=== PATIENT | male | born 1965 | race Caucasian/White ===

== ENCOUNTER 2019-09-07 09:37 | Emergency (ER) | payer SELFPAY ==
[2019-09-07] MEDS: Sodium Chloride 0.9% 10 ML Syringe FLUSH PRN ×4 (09:45→11:16)
[2019-09-07] MEDS ORDERED: Pantoprazole 40 MG Vial IVPUSH ONE (09:53)
[2019-09-07] MEDS ORDERED: Ondansetron 4 MG/2 ML SDV IVPUSH ONE ×2 (09:53→11:00)
[2019-09-07] MEDS ORDERED: Pantoprazole 40 MG Vial ONE (09:55)
[2019-09-07] MEDS ORDERED: Sodium Chloride 0.9% 1,000 ML IV SCH ×2 (10:00)
[2019-09-07] MEDS ORDERED: Vasopressin 20 Units/1 ML MDV IVPUSH ONE (10:09)
[2019-09-07] MEDS ORDERED: DOPamine/Dextrose 5%-Water 400 MG/250 ML BAG IV SCH (10:30)
--- NOTE | 2019-09-07 10:37 | EDM.PDOC ---
ED HPI GENERAL MEDICAL PROBLEM - General Stated Complaint: VOMITING of blood Time Seen by Provider: 09/07/19 10:25 Source of Information: Reports: Patient History Limitations: Reports: No Limitations - History of Present Illness INITIAL COMMENTS - FREE TEXT/NARRATIVE: Patient presented to the ED because of hematemesis. He vomited coffee ground emesis several times today. He also c/o diffuse abdominal pain,,8/10. The pain is sharp, worse on the epigastric area. There is no associate fever,chills or any usrinary symptoms. Past Medical History Gastrointestinal History: Reports: PUD Social & Family History - Tobacco Use Smoking Status *Q: Heavy Tobacco Smoker ED ROS GENERAL - Review of Systems Review Of Systems: See Below Constitutional: Reports: No Symptoms HEENT: Reports: No Symptoms Respiratory: Reports: No Symptoms Cardiovascular: Reports: No Symptoms Endocrine: Reports: No Symptoms GI/Abdominal: Reports: Abdominal Pain : Reports: No Symptoms Musculoskeletal: Reports: No Symptoms Skin: Reports: No Symptoms Neurological: Reports: No Symptoms Psychiatric: Reports: No Symptoms ED EXAM, GI/ABD - Physical Exam Exam: See Below Exam Limited By: No Limitations General Appearance: Alert, No Apparent Distress Ears: Normal External Exam, Normal Canal, Hearing Grossly Normal Throat/Mouth: Normal Inspection, Normal Lips, Normal Teeth Head: Atraumatic, Normocephalic Neck: Normal Inspection, Supple Respiratory/Chest: No Respiratory Distress, Lungs Clear, Normal Breath Sounds, No Accessory Muscle Use Cardiovascular: Normal Peripheral Pulses, Regular Rate, Rhythm, No Edema, No Gallop, No JVD, No Murmur GI/Abdominal Exam: Normal Bowel Sounds, Soft, Non-Tender, No Organomegaly, No Distention, No Abnormal Bruit (Male) Exam: No Hernia Back Exam: Normal Inspection Extremities: Normal Inspection Course - Vital Signs Text/Narrative:: labs/ct abd pelvis was discussed with patient and verbalized full understanding consult with Alexis who agreed with the above blood ns 2 liters bolus dopamine drip @ 10 microgram/min protonix 80 mg iv x1 protonix drip at 8 mg /hr zofran 4 mg ivx1 - Orders/Labs/Meds Orders: Active Orders 24 hr Category Date Time Status EKG Documentation Completion [RC] ASDIRECTED Care 09/07/19 09:52 Active Abdomen Pelvis w Cont [CT] Stat Exams 09/07/19 09:54 Ordered Chest 1V Frontal [CR] Stat Exams 09/07/19 09:50 Ordered AMYLASE [CHEM] Stat Lab 09/07/19 10:00 Received COMPREHENSIVE METABOLIC PN,CMP [CHEM] Stat Lab 09/07/19 10:00 Received INR,PT,PROTHROMBIN TIME [COAG] Stat Lab 09/07/19 09:50 Ordered LIPASE [CHEM] Stat Lab 09/07/19 10:00 Received PTT,PARTIAL THROMBOPLSTIN TIME [COAG] Stat Lab 09/07/19 09:50 Ordered TYPE AND SCREEN [BBK] Stat Lab 09/07/19 10:00 Received DOPamine/Dextrose 5%-Water [DOPamine in D5W 400 MG/250 Med 09/07/19 10:30 Active ML] 400 mg in 250 ml IV TITRATE Sodium Chloride 0.9% [Normal Saline] 1,000 ml Med 09/07/19 10:00 Active IV ASDIRECTED Sodium Chloride 0.9% [Normal Saline] 1,000 ml Med 09/07/19 10:00 Active IV ASDIRECTED Sodium Chloride 0.9% [Saline Flush] Med 09/07/19 09:50 Active 10 ml FLUSH ASDIRECTED PRN Saline Lock Insert [OM.PC] Routine Oth 09/07/19 09:50 Ordered EKG 12 Lead [EK] Routine Ther 09/07/19 09:52 Ordered Medication Orders Sodium Chloride (Normal Saline) 1,000 mls @ 999 mls/hr IV ASDIRECTED TOREY Sodium Chloride (Normal Saline) 1,000 mls @ 999 mls/hr IV ASDIRECTED TOREY Dopamine HCl/Dextrose (Dopamine In D5w 400 Mg/250 Ml) 400 mg in 250 mls @ 11.141 mls/hr IV TITRATE TOREY; Protocol Sodium Chloride (Saline Flush) 10 ml FLUSH ASDIRECTED PRN PRN Reason: Keep Vein Open Labs: Laboratory Tests 09/07/19 Range/Units 10:00 WBC 18.3 H (4.5-12.0) X10-3/uL RBC 3.01 L (4.30-5.75) x10(6)uL Hgb 7.6 L (13.5-17.8) g/dL Hct 23.9 L (30.0-51.3) % MCV 79.2 L (80-96) fL MCH 25.1 L (27.7-33.6) pg MCHC 31.7 L (32.2-35.4) g/dL RDW 23.3 H (11.5-15.5) % Plt Count 643 H (125-369) X10(3)uL MPV 7.9 (7.4-10.4) fL Add Manual Diff Yes Neutrophils % (Manual) 80 (46-82) % Band Neutrophils % 14 H (0-6) % Lymphocytes % (Manual) 2 L (13-37) % Monocytes % (Manual) 4 (4-12) % Anisocytosis Moderate H Meds: Medications Generic Name Dose Route Start Last Admin Trade Name Freq PRN Reason Stop Dose Admin Sodium Chloride 1,000 mls @ 999 mls/hr 09/07/19 10:00 Normal Saline IV ASDIRECTED TOREY Sodium Chloride 1,000 mls @ 999 mls/hr 09/07/19 10:00 Normal Saline IV ASDIRECTED TOREY Dopamine HCl/Dextrose 400 mg in 250 mls @ 11.141 mls/hr 09/07/19 10:30 Dopamine In D5w 400 Mg/250 Ml IV TITRATE TOREY Protocol 5 MCG/KG/MIN Sodium Chloride 10 ml 09/07/19 09:50 Saline Flush FLUSH ASDIRECTED PRN Keep Vein Open Discontinued Medications Generic Name Dose Route Start Last Admin Trade Name Freq PRN Reason Stop Dose Admin Ondansetron HCl 4 mg 09/07/19 09:53 Zofran IVPUSH 09/07/19 09:54 ONETIME ONE Pantoprazole Sodium 80 mg 09/07/19 09:53 Protonix Iv IVPUSH 09/07/19 09:54 .BOLUS ONE Pantoprazole Sodium Confirm 09/07/19 09:55 Protonix Iv Administered 09/07/19 09:56 Dose 80 mg .ROUTE .STK-MED ONE Vasopressin 0.1 units 09/07/19 10:09 Vasopressin IVPUSH 09/07/19 10:10 ONETIME ONE Departure - Departure Time of Disposition: 10:00 Disposition: DC/Tfer to Acute Hospital 02 Condition: Critical Clinical Impression: Upper GI bleed - Discharge Information Referrals: PCP,Not In Area [Primary Care Provider] - - My Orders Last 24 Hours: My Active Orders 09/07/19 09:50 Chest 1V Frontal [CR] Stat INR,PT,PROTHROMBIN TIME [COAG] Stat PTT,PARTIAL THROMBOPLSTIN TIME [COAG] Stat Sodium Chloride 0.9% [Saline Flush] 10 ml FLUSH ASDIRECTED PRN Saline Lock Insert [OM.PC] Routine 09/07/19 09:52 EKG Documentation Completion [RC] ASDIRECTED EKG 12 Lead [EK] Routine 09/07/19 09:54 Abdomen Pelvis w Cont [CT] Stat 09/07/19 10:00 AMYLASE [CHEM] Stat COMPREHENSIVE METABOLIC PN,CMP [CHEM] Stat LIPASE [CHEM] Stat TYPE AND SCREEN [BBK] Stat Sodium Chloride 0.9% [Normal Saline] 1,000 ml IV ASDIRECTED Sodium Chloride 0.9% [Normal Saline] 1,000 ml IV ASDIRECTED 09/07/19 10:30 DOPamine/Dextrose 5%-Water [DOPamine in D5W 400 MG/250 ML] 400 mg in 250 ml IV TITRATE - Assessment/Plan Last 24 Hours: My Active Orders 09/07/19 09:50 Chest 1V Frontal [CR] Stat INR,PT,PROTHROMBIN TIME [COAG] Stat PTT,PARTIAL THROMBOPLSTIN TIME [COAG] Stat Sodium Chloride 0.9% [Saline Flush] 10 ml FLUSH ASDIRECTED PRN Saline Lock Insert [OM.PC] Routine 09/07/19 09:52 EKG Documentation Completion [RC] ASDIRECTED EKG 12 Lead [EK] Routine 09/07/19 09:54 Abdomen Pelvis w Cont [CT] Stat 09/07/19 10:00 AMYLASE [CHEM] Stat COMPREHENSIVE METABOLIC PN,CMP [CHEM] Stat LIPASE [CHEM] Stat TYPE AND SCREEN [BBK] Stat Sodium Chloride 0.9% [Normal Saline] 1,000 ml IV ASDIRECTED Sodium Chloride 0.9% [Normal Saline] 1,000 ml IV ASDIRECTED 09/07/19 10:30 DOPamine/Dextrose 5%-Water [DOPamine in D5W 400 MG/250 ML] 400 mg in 250 ml IV TITRATE
[2019-09-07] MEDS ORDERED: Pantoprazole 80 MG in Sodium Chloride 0.9% 100 ML IV SCH (10:45)
[2019-09-07] MEDS ORDERED: Ondansetron 4 MG/2 ML SDV ONE (10:59)
[2019-09-07] MEDS ORDERED: Metoclopramide 10 MG/2 ML SDV ONE (11:04)
[2019-09-07] MEDS ORDERED: Metoclopramide 10 MG/2 ML SDV IVPUSH ONE (11:05)
--- NOTE | 2019-09-07 11:19 | CT ---
INDICATION: Hemoptysis. CT ABDOMEN AND PELVIS WITHOUT CONTRAST: Spiral 2.5 mm axial sections were obtained through the abdomen and pelvis without contrast 09/07/2019 - no comparisons. Total exam DLP was 401.51 mGy/cm. Lower lung baptiste and pleural spaces visualized revealed no definite active infiltrate or effusion. The heart did not appear enlarged. No pericardial effusion was seen. A moderate large fixed hiatal hernia is noted surrounded by air. A massively dilated stomach is noted with some irregularity at the posterior fundal area raising question of a discontinuous wall, raising question of a perforation. There is massive free air in the abdomen. There is massive distension of the colon in the area of the cecum with filling of the colon with what appears to be soft stool and air down to the level of the distal descending colon, where an area of increased density raises question of a neoplastic process or focal contraction seen on coronal image 74. The transition is noted on axial images 113 through 130 and is also well seen on coronal images 67 through 76. There is some gas and stool in the more distal colon which is not dilated. No specific retroperitoneal mass was identified. The gallbladder is somewhat enlarged but this could be on the basis of NPO status. It measured 95 mm. Adrenal glands and kidneys appear grossly normal. There is some mild renal calcinosis noted with tiny calculi times two in the lower pole of the left kidney. No gross abnormality of the pancreas was identified. The spleen and liver were fairly unremarkable. There is some limitation with visualization due to lack of IV contrast, however. There is suggestion of some fluid in the right pericolic gutter inferior to the liver edge. There is also ascites in the pelvis to a moderate degree. No significant appearing hernia was identified. IMPRESSION: 1. A massive amount of free air in the abdomen intraperitoneally, as well as extending around a moderately large fixed hiatal hernia. This is associated with massive distension of the stomach and proximal colon down to the level of the distal transverse colon, where an area of transition raises question of a neoplastic process. 2. Somewhat distended gallbladder most likely due to NPO status. 3. Minimal renal calcinosis lower pole left kidney. Report was called to Dr. Quispe at approximately 1045 hours. [facility]
--- NOTE | 2019-09-07 11:22 | CR ---
INDICATION: Hemoptysis. CHEST: An AP 30 degree Trendelenburg positioned 40-inch image was obtained portable and revealed no definite active infiltrate or effusion. The heart did not appear enlarged. There is some calcification in the arch of the aorta. Overlying EKG leads are noted. IMPRESSION: No acute process. MTDD
[2019-09-07] MEDS ORDERED: Sodium Chloride 0.9% 1,000 ML IV ONE (11:25)
== END 2019-09-07 11:34 ==
LOC: FB.ED 09:37
DX: K92.2 Gastrointestinal hemorrhage, unspecified (principal); F17.200 Nicotine dependence, unspecified, uncomplicated
CPT/HCPCS: 36415; 36430; 71045; 74176; 80053; 82150; 83690; 85025; 86850; 86900; 86901; 86920; 86922; 96361; 96365; 96375; 96376; 99285; C9113; J1265; J2405; J2765; J7030; J7050; P9016

== ENCOUNTER 2022-12-08 15:33 | Inpatient (IN) | payer OTHER ==
[2022-12-08] MEDS ORDERED: Sodium Chloride 0.9% 10 ML Syringe FLUSH PRN (15:39)
[2022-12-08] MEDS ORDERED: Sodium Chloride 0.9% 1,000 ML IV SCH (15:45)
[2022-12-08 16:00] LABS: BASOPHILS PERCENT AUTO 0.3 % (0.3-3.8); EOSINOPHILS ABSOLUTE AUTO 0.2 x10-3/uL (0.0-0.6); EOSINOPHILS PERCENT AUTO 1.8 % (0.1-6.8); HEMATOCRIT 35.1 % (38.3-50.1); HEMOGLOBIN 11.1 g/dL (12.9-17.7); LYMPHOCYTES ABSOLUTE AUTO 1.4 x10-3/uL (0.5-4.5); LYMPHOCYTES PERCENT AUTO 12.5 % (15.8-45.3); MEAN CORPUSCULAR HEMOGLOBIN 27.6 pg (27.0-33.3); MEAN CORPUSCULAR HGB CONC 31.7 g/dL (28.7-35.3); MEAN CORPUSCULAR VOLUME 86.8 fL (80.8-98.7); MEAN PLATELET VOLUME 7.2 fL (6.7-11.0); MONOCYTES PERCENT AUTO 9.3 % (5.5-15.2); NEUTROPHILS ABSOLUTE AUTO 8.6 x10-3/uL (1.7-6.9); NEUTROPHILS PERCENT AUTO 76.1 % (40.3-71.8); PLATELET COUNT,PLT 538 x10(3)uL (117-477); RED BLOOD CELL COUNT 4.04 x10(6)uL (3.90-5.90); RED CELL DISTRIBUTION WIDTH 18.9 % (12.4-15.0); WHITE BLOOD CELL COUNT,WBC 11.2 x10-3/uL (3.2-10.1)
[2022-12-08 16:12] LABS: A/G RATIO 0.7; ALANINE AMINOTRANSFERASE,ALT 29 U/L (12-36); ALBUMIN 3.3 g/dL (3.5-5.2); ALKALINE PHOSPHATASE 85 IU/L (56-112); ASPARTATE AMNIOTRANSFERASE,AST 19 IU/L (5-25); BLOOD UREA NITROGEN,BUN 97 mg/dL (7-18); CALCIUM 9.3 mg/dL (8.6-10.2); CHLORIDE,CL 104 mmol/L (100-110); ESTIMATED GFR 34 mL/min (>60); GLUCOSE RANDOM 134 mg/dL (80-116); PROTEIN TOTAL,TP 8.3 g/dL (6.0-8.0); SODIUM,NA 131 mmol/L (135-145)
[2022-12-08 16:14] LABS: BILIRUBIN TOTAL < 0.1 mg/dL (0.1-1.3); BUN/CREATININE RATIO 44.1 (9-20); CARBON DIOXIDE,CO2 10 mmol/L (21-32); CREATININE 2.2 mg/dL (0.70-1.30); POTASSIUM,K 6.4 mmol/L (3.5-5.3)
[2022-12-08 16:18] LABS: TROPONIN I 4.6 pg/mL (4.0-60.3)
[2022-12-08] MEDS ORDERED: Insulin Regular, Human 100 Units/ML 3 ML Vial IV ONE (16:19)
[2022-12-08] MEDS ORDERED: 50% Dextrose in Water 50 ML Syringe IVPUSH PRN (16:19)
[2022-12-08] MEDS ORDERED: Glucagon,Human Recombinant 1 MG Vial IM PRN (16:19)
[2022-12-08] MEDS ORDERED: Calcium Gluconate 10% 1 GM/10 ML SDV IVPUSH ONE (16:19)
[2022-12-08] MEDS ORDERED: Sodium Bicarbonate 8.4% 50 MEQ/50 ML Syringe IVPUSH ONE (16:20)
[2022-12-08] MEDS ORDERED: Albuterol 0.083% 2.5 MG/3 ML Neb Soln NEB ONE (16:21)
[2022-12-08] MEDS ORDERED: fentaNYL 100 MCG/2 ML SDV IVPUSH ONE (16:52)
[2022-12-08] MEDS: Sodium Chloride 0.9% 1,000 ML IV SCH (18:00)
[2022-12-08 18:29] LABS: BLOOD UREA NITROGEN,BUN 96 mg/dL (7-18); CALCIUM 9.3 mg/dL (8.6-10.2); CARBON DIOXIDE,CO2 13 mmol/L (21-32); CHLORIDE,CL 108 mmol/L (100-110); CREATININE 1.8 mg/dL (0.70-1.30); EST CRCL DRUG DOSING (CG) 40.86 mL/min; ESTIMATED GFR 43 mL/min (>60); GLUCOSE RANDOM 113 mg/dL (80-116); POTASSIUM,K 4.8 mmol/L (3.5-5.3); SODIUM,NA 135 mmol/L (135-145)
[2022-12-08 18:29] LABS: BILIRUBIN,URINE NEGATIVE (NEGATIVE); GLUCOSE,URINE NORMAL (NORMAL); KETONES,URINE NEGATIVE (NEGATIVE); LEUKOCYTE ESTERASE,URINE NEGATIVE (NEGATIVE); NITRITE,URINE NEGATIVE (NEGATIVE); OCCULT BLOOD,URINE NEGATIVE (NEGATIVE); PROTEIN,URINE NEGATIVE (NEGATIVE); UROBILINOGEN,URINE NORMAL (NEGATIVE)
[2022-12-08 18:32] LABS: APPEARANCE,URINE CLEAR (CLEAR); BACTERIA,URINE OCCASIONAL (NS); COLOR,URINE YELLOW (YELLOW); RBC,URINE NOT SEEN (0-5); SQUAMOUS EPITHELIAL CELLS,UR OCCASIONAL (NS,R,O); WBC,URINE 0-5 (0-5)
[2022-12-08 18:32] LABS: BUN/CREATININE RATIO 53.3 (9-20)
[2022-12-08 18:35] LABS: LACTIC ACID 0.8 mmol/L (0.4-2.0)
[2022-12-08] MEDS ORDERED: Morphine 2 MG/ML SYRINGE IVPUSH PRN (18:41)
[2022-12-08] MEDS ORDERED: Acetaminophen 500 MG Tab PO PRN (19:22)
[2022-12-08] MEDS ORDERED: Albuterol 8 GM Inhaler INH PRN (19:22)
[2022-12-08] MEDS: HYDROmorphone 2 MG/ML SDV IVPUSH PRN ×2 (20:20→23:28)
[2022-12-08] MEDS ORDERED: Formoterol/Mometasone 200-5 MCG 8.8 GM Inhaler IH SCH (21:00)
[2022-12-08] MEDS ORDERED: Non-Formulary Medication 1 Each (Omeprazole [Omeprazole] 20 MG Capsule.Dr) PO SCH (21:00)
[2022-12-08] MEDS: Apixaban 5 MG Tab PO SCH (21:17)
[2022-12-08] MEDS: Pantoprazole 40 MG Tab.CR PO SCH (21:17)
[2022-12-09] MEDS: Sodium Chloride 0.9% 1,000 ML IV SCH ×4 (00:17→19:43)
[2022-12-09] MEDS: HYDROmorphone 2 MG/ML SDV IVPUSH PRN ×6 (01:59→14:26)
[2022-12-09 06:43] LABS: BASOPHILS PERCENT AUTO 0.4 % (0.3-3.8); EOSINOPHILS ABSOLUTE AUTO 0.2 x10-3/uL (0.0-0.6); EOSINOPHILS PERCENT AUTO 1.7 % (0.1-6.8); HEMATOCRIT 30.8 % (38.3-50.1); HEMOGLOBIN 9.8 g/dL (12.9-17.7); LYMPHOCYTES ABSOLUTE AUTO 1.1 x10-3/uL (0.5-4.5); LYMPHOCYTES PERCENT AUTO 9.6 % (15.8-45.3); MEAN CORPUSCULAR HEMOGLOBIN 27.7 pg (27.0-33.3); MEAN CORPUSCULAR HGB CONC 31.9 g/dL (28.7-35.3); MEAN CORPUSCULAR VOLUME 86.6 fL (80.8-98.7); MEAN PLATELET VOLUME 7.1 fL (6.7-11.0); MONOCYTES ABSOLUTE AUTO 1.3 x10-3/uL (0.0-1.2); MONOCYTES PERCENT AUTO 12.2 % (5.5-15.2); NEUTROPHILS ABSOLUTE AUTO 8.4 x10-3/uL (1.7-6.9); NEUTROPHILS PERCENT AUTO 76.1 % (40.3-71.8); PLATELET COUNT,PLT 475 x10(3)uL (117-477); RED BLOOD CELL COUNT 3.56 x10(6)uL (3.90-5.90); RED CELL DISTRIBUTION WIDTH 18.8 % (12.4-15.0); WHITE BLOOD CELL COUNT,WBC 11.1 x10-3/uL (3.2-10.1)
[2022-12-09 06:56] LABS: ALANINE AMINOTRANSFERASE,ALT 23 U/L (12-36); ALBUMIN 2.7 g/dL (3.5-5.2); ALKALINE PHOSPHATASE 70 IU/L (56-112); ASPARTATE AMNIOTRANSFERASE,AST 17 IU/L (5-25); BILIRUBIN TOTAL 0.2 mg/dL (0.1-1.3); BLOOD UREA NITROGEN,BUN 68 mg/dL (7-18); CALCIUM 8.9 mg/dL (8.6-10.2); CARBON DIOXIDE,CO2 15 mmol/L (21-32); CHLORIDE,CL 110 mmol/L (100-110); CREATININE 1.2 mg/dL (0.70-1.30); EST CRCL DRUG DOSING (CG) 61.29 mL/min; ESTIMATED GFR 71 mL/min (>60); GLUCOSE RANDOM 84 mg/dL (80-116); POTASSIUM,K 5.4 mmol/L (3.5-5.3); SODIUM,NA 136 mmol/L (135-145)
[2022-12-09 06:58] LABS: BUN/CREATININE RATIO 56.7 (9-20)
[2022-12-09] MEDS: Rosuvastatin 20 MG Tab PO SCH (08:16)
[2022-12-09] MEDS: Apixaban 5 MG Tab PO SCH ×2 (08:17→20:30)
[2022-12-09] MEDS: Ferrous Sulfate 325 MG Tab PO SCH (08:17)
[2022-12-09] MEDS: Pantoprazole 40 MG Tab.CR PO SCH ×2 (08:17→20:30)
[2022-12-09 08:18] LABS: A/G RATIO 0.6; PROTEIN TOTAL,TP 7.1 g/dL (6.0-8.0)
[2022-12-09] MEDS: Formoterol/Mometasone 200-5 MCG 8.8 GM Inhaler IH SCH ×2 (09:08→20:29)
[2022-12-09] MEDS ORDERED: Furosemide 20 MG/2 ML VIAL IVPUSH ONE (10:00)
[2022-12-09] MEDS ORDERED: Ketorolac 15 MG/ML SDV IVPUSH ONE (12:00)
[2022-12-09] MEDS ORDERED: Iopamidol 755 Mg/ML 100 ML Bottle IV ONE (12:32)
[2022-12-09] MEDS: Magnesium Oxide 400 MG Tab PO SCH (15:04)
[2022-12-09] MEDS: Ketorolac 15 MG/ML SDV IVPUSH PRN (17:59)
[2022-12-09] MEDS: Acetaminophen/oxyCODONE 325-5 MG Tab PO PRN (21:16)
[2022-12-10] MEDS: Ketorolac 15 MG/ML SDV IVPUSH PRN ×2 (00:05→14:03)
[2022-12-10] MEDS: Sodium Chloride 0.9% 1,000 ML IV SCH ×3 (02:28→15:56)
[2022-12-10] MEDS: Acetaminophen/oxyCODONE 325-5 MG Tab PO PRN (02:29)
[2022-12-10] MEDS ORDERED: HYDROmorphone 2 MG/ML SDV IVPUSH STA ×2 (05:56→19:52)
[2022-12-10 06:41] LABS: BASOPHILS PERCENT AUTO 0.2 % (0.3-3.8); EOSINOPHILS ABSOLUTE AUTO 0.2 x10-3/uL (0.0-0.6); EOSINOPHILS PERCENT AUTO 1.8 % (0.1-6.8); HEMATOCRIT 30.2 % (38.3-50.1); HEMOGLOBIN 9.7 g/dL (12.9-17.7); LYMPHOCYTES PERCENT AUTO 10.2 % (15.8-45.3); MEAN CORPUSCULAR HEMOGLOBIN 27.8 pg (27.0-33.3); MEAN CORPUSCULAR HGB CONC 32.2 g/dL (28.7-35.3); MEAN CORPUSCULAR VOLUME 86.1 fL (80.8-98.7); MONOCYTES ABSOLUTE AUTO 1.1 x10-3/uL (0.0-1.2); MONOCYTES PERCENT AUTO 11.6 % (5.5-15.2); NEUTROPHILS ABSOLUTE AUTO 7.4 x10-3/uL (1.7-6.9); NEUTROPHILS PERCENT AUTO 76.2 % (40.3-71.8); PLATELET COUNT,PLT 494 x10(3)uL (117-477); RED BLOOD CELL COUNT 3.51 x10(6)uL (3.90-5.90); RED CELL DISTRIBUTION WIDTH 18.9 % (12.4-15.0); WHITE BLOOD CELL COUNT,WBC 9.7 x10-3/uL (3.2-10.1)
[2022-12-10 06:55] LABS: A/G RATIO 0.6; ALANINE AMINOTRANSFERASE,ALT 19 U/L (12-36); ALBUMIN 2.6 g/dL (3.5-5.2); ALKALINE PHOSPHATASE 70 IU/L (56-112); ASPARTATE AMNIOTRANSFERASE,AST 19 IU/L (5-25); BILIRUBIN TOTAL 0.2 mg/dL (0.1-1.3); BLOOD UREA NITROGEN,BUN 36 mg/dL (7-18); BUN/CREATININE RATIO 32.7 (9-20); CALCIUM 8.4 mg/dL (8.6-10.2); CARBON DIOXIDE,CO2 17 mmol/L (21-32); CHLORIDE,CL 109 mmol/L (100-110); CREATININE 1.1 mg/dL (0.70-1.30); EST CRCL DRUG DOSING (CG) 66.86 mL/min; ESTIMATED GFR 78 mL/min (>60); GLUCOSE RANDOM 92 mg/dL (80-116); LACTATE DEHYDROGENASE,LDH 140 U/L (85-227); POTASSIUM,K 4.4 mmol/L (3.5-5.3); PROTEIN TOTAL,TP 6.8 g/dL (6.0-8.0); SODIUM,NA 136 mmol/L (135-145)
[2022-12-10] MEDS ORDERED: HYDROmorphone 2 MG/ML SDV IVPUSH ONE ×2 (09:10→11:33)
[2022-12-10] MEDS: Apixaban 5 MG Tab PO SCH (11:19)
[2022-12-10] MEDS: Ferrous Sulfate 325 MG Tab PO SCH (11:19)
[2022-12-10] MEDS: Pantoprazole 40 MG Tab.CR PO SCH (11:19)
[2022-12-10] MEDS: Rosuvastatin 20 MG Tab PO SCH (11:19)
[2022-12-10] MEDS: Magnesium Oxide 400 MG Tab PO SCH (11:20)
[2022-12-10] MEDS: Formoterol/Mometasone 200-5 MCG 8.8 GM Inhaler IH SCH (12:06)
[2022-12-10] MEDS: Ondansetron 4 MG/2 ML SDV IV PRN ×2 (12:06→19:29)
[2022-12-10] MEDS ORDERED: HYDROmorphone 2 MG/ML SDV IVPUSH PRN (15:24)
[2022-12-10] MEDS ORDERED: Ketorolac 30 MG/ML SDV IVPUSH SCH (17:15)
[2022-12-10] MEDS ORDERED: Iopamidol 755 Mg/ML 100 ML Bottle IV ONE (17:15)
[2022-12-10 17:47] LABS: BASOPHILS PERCENT AUTO 0.1 % (0.3-3.8); EOSINOPHILS PERCENT AUTO 0.5 % (0.1-6.8); HEMATOCRIT 33.7 % (38.3-50.1); HEMOGLOBIN 10.6 g/dL (12.9-17.7); LYMPHOCYTES ABSOLUTE AUTO 0.5 x10-3/uL (0.5-4.5); LYMPHOCYTES PERCENT AUTO 5.2 % (15.8-45.3); MEAN CORPUSCULAR HEMOGLOBIN 27.1 pg (27.0-33.3); MEAN CORPUSCULAR HGB CONC 31.4 g/dL (28.7-35.3); MEAN CORPUSCULAR VOLUME 86.4 fL (80.8-98.7); MEAN PLATELET VOLUME 7.2 fL (6.7-11.0); MONOCYTES ABSOLUTE AUTO 0.8 x10-3/uL (0.0-1.2); NEUTROPHILS ABSOLUTE AUTO 7.6 x10-3/uL (1.7-6.9); NEUTROPHILS PERCENT AUTO 85.2 % (40.3-71.8); PLATELET COUNT,PLT 493 x10(3)uL (117-477); RED BLOOD CELL COUNT 3.91 x10(6)uL (3.90-5.90); WHITE BLOOD CELL COUNT,WBC 8.9 x10-3/uL (3.2-10.1)
[2022-12-10 17:56] LABS: LACTIC ACID 1.3 mmol/L (0.4-2.0)
[2022-12-10] MEDS ORDERED: Pantoprazole 40 MG Vial IVPUSH STA (19:39)
[2022-12-10] MEDS ORDERED: Piperacillin/Tazobactam 4.5 GM in Sodium Chloride 0.9% 100 ML IV STA (19:51)
== END 2022-12-10 20:20 | DRG 682 ==
LOC: FB.ED 15:33 → FB.MS 18:33 → OBSVTOIN 12-09 09:46
PROVIDERS: ADMIT Family Medicine; ATTEND Family Medicine
DX: N17.9 Acute kidney failure, unspecified (principal); K85.00 Idiopathic acute pancreatitis without necrosis or infection; K56.7 Ileus, unspecified; E87.1 Hypo-osmolality and hyponatremia; E87.5 Hyperkalemia; K52.9 Noninfective gastroenteritis and colitis, unspecified; E86.0 Dehydration; E88.09 Other disorders of plasma-protein metabolism, not elsewhere classified; E86.1 Hypovolemia; I48.0 Paroxysmal atrial fibrillation; I48.91 Unspecified atrial fibrillation; Z88.8 Allergy status to other drugs, medicaments and biological substances; Z79.899 Other long term (current) drug therapy; Z79.82 Long term (current) use of aspirin
CPT/HCPCS: 36415; 71045; 74018; 74019; 74176; 74177; 80048; 80053; 81001; 82150; 83605; 83615; 83690; 83880; 84132; 84484; 85025; 86140; 87040; 87230; 93005; 96361; 96374; 96375; 96376; 99222; 99238; 99285-25; A9270-GY; C9113; G0378; J0612; J1170; J1815-GY; J1885; J1940; J2405; J2543; J3010; J3490; J7030; Q9967